=== PATIENT | male | born 1975 | race Caucasian/White ===

== ENCOUNTER 2020-07-11 10:32 | Outpatient (CLI) | payer BC, SELFPAY ==
[2020-07-11 11:04] LABS: Cholesterol 197 mg/dL (0-200); HDL Direct 42 mg/dL; Triglycerides 102 mg/dL (<150)
[2020-07-11 11:18] LABS: LDL Cholesterol Direct 112 mg/dL
[2020-07-11 11:36] LABS: Prostate Specific Antigen 0.5 ng/mL (< OR = 4.0)
== END 2020-07-11 10:33 | disposition home or self-care (01) ==
LOC: ANHLAB 10:38
PROVIDERS: PCP Family Medicine; Visit Provider Family Medicine
DX: Z13.220 Encounter for screening for lipoid disorders (principal); Z12.5 Encounter for screening for malignant neoplasm of prostate
CPT/HCPCS: 36415; 80061; 84153; G0103

== ENCOUNTER 2023-11-01 08:31 | Outpatient (CLI) | payer BC, SELFPAY ==
[2023-11-01 13:56] LABS: Cholesterol 187 mg/dL (0-200); HDL Direct 38 mg/dL; Triglycerides 101 mg/dL (<150)
[2023-11-01 14:07] LABS: LDL Cholesterol Direct 117 mg/dL
== END 2023-11-01 08:32 | disposition home or self-care (01) ==
LOC: ANHGOSHLAB 08:33
PROVIDERS: PCP Family Medicine; Visit Provider Family Medicine
DX: Z13.220 Encounter for screening for lipoid disorders (principal); Z12.5 Encounter for screening for malignant neoplasm of prostate
CPT/HCPCS: 36415; 80061; 84153; G0103